=== PATIENT | female | born 1955 | race Caucasian/White ===

== ENCOUNTER → 2018-01-15 07:53 | Outpatient (CLI) | payer OTHER, SELFPAY ==
[2018-01-15 08:52] LABS: Alanine Aminotransferase 25 IU/L (9-52); Albumin 4.5 g/dL (3.5-5.0); Albumin Globulin Ratio 1.5 (1.0-2.8); Alkaline Phosphatase 97 U/L (38-126); Aspartate Aminotransferase 21 IU/L (14-36); BUN Creatinine Ratio 12.9 (6-22); Bilirubin Total 0.4 mg/dL (0.2-1.3); Cholesterol 284 mg/dL (140-199); Estimated Glomerular Filt Rate > 60.0 mL/min (>60); Globulin 3.1 g/dL (1.7-4.1); Glucose 110 mg/dL (80-110); HDL Cholesterol 64 mg/dL (40-60); HEMOLYSIS 21 (0-50); LDL Cholesterol Calculated 168 mg/dL (<100); Potassium 4.1 mmol/L (3.4-5.1); Sodium 139 mmol/L (137-145); Total Protein 7.6 g/dL (6.3-8.2); Triglycerides 259 mg/dL (35-150)
== END ==
PROVIDERS: PCP Family Medicine; Visit Provider Family Medicine
DX: E78.2 Mixed hyperlipidemia (principal); R79.89 Other specified abnormal findings of blood chemistry
CPT/HCPCS: 36415; 80053; 80061

== ENCOUNTER → 2018-06-05 08:21 | Outpatient (CLI) | payer OTHER, SELFPAY ==
[2018-06-05 10:07] LABS: Alanine Aminotransferase 35 IU/L (9-52); Albumin 4.5 g/dL (3.5-5.0); Albumin Globulin Ratio 1.5 (1.0-2.8); Alkaline Phosphatase 84 U/L (38-126); Aspartate Aminotransferase 24 IU/L (14-36); BUN Creatinine Ratio 14.3 (6-22); Bilirubin Total 0.4 mg/dL (0.2-1.3); Blood Urea Nitrogen 10 mg/dL (7-17); Calcium 9.2 mg/dL (8.4-10.2); Carbon Dioxide 27 mmol/L (22-32); Chloride 103 mmol/L (98-107); Cholesterol 215 mg/dL (140-199); Estimated Glomerular Filt Rate > 60.0 mL/min (>60); Globulin 3.1 g/dL (1.7-4.1); Glucose 113 mg/dL (80-110); HDL Cholesterol 61 mg/dL (40-60); HEMOLYSIS 17 (0-50); LDL Cholesterol Calculated 115 mg/dL (<100); Potassium 4.3 mmol/L (3.4-5.1); Sodium 142 mmol/L (137-145); Total Protein 7.6 g/dL (6.3-8.2); Triglycerides 193 mg/dL (35-150)
== END ==
PROVIDERS: PCP Family Medicine; Visit Provider Family Medicine
DX: E78.5 Hyperlipidemia, unspecified (principal)
CPT/HCPCS: 36415; 80053; 80061

== ENCOUNTER 2018-08-10 06:46 | Day surgery (SDC) | payer OTHER, SELFPAY ==
--- NOTE | 2018-08-10 | PATH_ITS ---
[facility] Accession Number: [id number] . 01 Material submitted: . PART A: ANTRAL BIOPSIES PART B: RANDOM COLON BIOPSIES PART C: SIGMOID POLYP AT 25 . 02 Diagnosis: A. Stomach, Antrum, Biopsies: Antral mucosa with no diagnostic abnormality. No evidence of Helicobacter on H/E stain. Negative for intestinal metaplasia. Negative for dysplasia and malignancy. . B. Random Colon, Biopsies: Colonic mucosa with melanosis coli and no other diagnostic abnormality. Negative for active, chronic and microscopic colitis. Negative for dysplasia and malignancy. . C. Sigmoid Colon, Polyp at 25, Biopsy: Tubular adenoma. [facility]/08/11/2018 . 02 Electronically signed: . Jocelyn Gilbert MD, Pathologist NPI- [id number] . 01 Gross description: . Received three formalin-filled containers, each labeled with the patient's name: . A. In a container labeled antral, are three 0.1-0.2 cm portions of tissue, entirely submitted in cassette A. B. In a container labeled right colon, are multiple less than 0.1 cm to 0.2 cm portions of tissue and/or debris, which are filtered, wrapped, and entirely submitted in cassette B. C. In a container labeled sigmoid polyp at 25, are three less than 0.1 cm to 0.3 cm portions of tissue, entirely submitted in cassette C. ([id number]) /FRR . 02 Pathologist provided ICD-10: D12.5 . 02 CPT . 494772, 030522, 275252 Performed at: [address] [facility], [place], [place] [id number] MD Aamir Harding MD Phone: [phone] Performed at: 02 [facility] [place] [address] [place] [id number] MD Jocelyn Gilbert MD Phone: [phone]
[2018-08-10 07:08] VITALS: BP 132/86; PULSE 79; RESP 16; TEMP 36.6; O2SAT 98; BMI 28.3
[2018-08-10] MEDS: SODIUM CHLORIDE 0.9% 1,000 ML 200 ML IV (07:13)
--- NOTE | 2018-08-10 07:31 | PM.PREOP ---
Pre-operative Note Interval Note Pre-op Check: Yes History & Physical Reviewed by Physician and Yes Exam Performed Changes: No H&P completed within 30 days and has changed as indicated here:: Patient seen and examined in the preoperative area. History and physical examination as documented July 30, 2018 is on the chart and remains unchanged. Proceed with EGD and colonoscopy today as planned. ASA Class (for procedural sedation): II
[2018-08-10] MEDS: TETRACAINE/BENZOCAINE/BUTAMBEN (CETACAINE) BOTTLE 1 SPRAY TOP (07:50)
[2018-08-10] MEDS: LIDOCAINE 4% SOLN 50 ML 20 ML TOP (07:51)
[2018-08-10] MEDS: MIDAZOLAM 5 MG/5 ML VIAL IV (07:58)
[2018-08-10] MEDS: fentaNYL 250 MCG/5 ML INJ IV (07:59)
--- NOTE | 2018-08-10 08:07 | PM.OP.ENDO ---
Operative Date/Time/Diagnoses Date of procedure: 08/10/18 Time of procedure: 08:07 Pre-op diagnosis: Abdominal pain and change in bowel habits Post-op diagnosis: other (Normal upper gastrointestinal tract and sigmoid colon polyp with melanosis coli) Procedure & Clinicians Study performed: 1. Sedation per surgeon 2. Esophagogastroduodenoscopy with cold forceps biopsies 3. Colonoscopy with cold forceps polypectomy and biopsies Same procedure as scheduled: Yes Indications: 63-year-old female who presented initially with epigastric abdominal pain and was found to have cholelithiasis. She completed laparoscopic cholecystectomy without complications but her symptoms persisted unchanged. She is also having some change in bowel habits. She was therefore recommended undergo EGD and colonoscopy. Surgeon: Cal Whittington Procedure Notes SCOAP/Timeout: Yes Procedure in detail: After obtaining informed consent, the patient was brought to the GI suite and placed in the left lateral decubitus position on the examination table. After placement of appropriate monitors, the patient was given incremental doses of Versed and Fentanyl until an appropriate level of sedation was achieved. A time out was held per SCOAP protocol. A bite block was gently placed between the patient's teeth. The endoscope was lubricated and then passed into the patient's posterior oropharynx. The esophagus was cannulated under direct vision and the scope was passed to the second portion of the duodenum without difficulty. The scope was then withdrawn with careful examination of all areas of the upper GI tract and mucosa. In the stomach, the instrument was retroflexed and the GE junction examined. Z-line was at 35 cm from the incisors. Larynx was grossly normal. The scope was straightened and the procedure continued with examination of the remainder of the upper GI tract. Findings are noted above. Air was aspirated from the stomach and the endoscope gently removed from the esophagus. Bite block was removed and patient turned 180? for colonoscopy. A digital rectal examination was performed and did not reveal any masses or obstructing lesions. The colonoscope was gently passed into the patient's anus and the entire colon navigated to the level of the cecum with minimal difficulty. Terminal ileum was intubated and noted to be grossly normal. Once in the cecum, the scope was withdrawn being sure to go before and beyond all mucosal folds and prominences and get an excellent examination. The findings are noted above. At the level of the rectal vault, the scope was retroflexed and the internal anal canal was examined. The scope was straightened and air aspirated from the colon. The instrument was removed from the patient's body and the procedure was concluded. The patient was allowed to awaken from sedation without difficulty and taken to the post-anesthesia care unit in good condition. Scope withdrawal time: 9:34 min Sedation minutes: 26 Findings: polyp and other findings (Melanosis coli) Specimen(s): other (1. Antral biopsies 2. Random colon biopsies 3. Sigmoid colon polyp at 25 cm) Complications: none Recommendations: Colonscopy in 5 years, Reflux diet and No ASA/NSAIDS Plan for aftercare: 1. Discharge home Follow up: weeks (Two weeks with Dr. Whittington) Disposition: PACU
[2018-08-10 08:10] VITALS: BP 110/67; PULSE 82; RESP 19; O2SAT 97
[2018-08-10 08:15] VITALS: BP 107/60; PULSE 72; RESP 8; O2SAT 97
[2018-08-10 08:18] VITALS: TEMP 37
[2018-08-10 08:21] VITALS: BP 115/69; PULSE 84; RESP 13; O2SAT 96
[2018-08-10 08:41] VITALS: BP 113/73; PULSE 77; RESP 15; TEMP 36.1; O2SAT 98
== END 2018-08-10 08:50 | disposition home or self-care (01) ==
PROVIDERS: Family Provider Family Medicine; PCP Family Medicine; Visit Provider Surgery
PROC: 0DJD8ZZ Inspection of Lower Intestinal Tract, Via Natural or Artificial Opening Endoscopic (ICD-10-PCS; CPT 45378; 2018-08-10 07:45)
PROC: 0DJ08ZZ Inspection of Upper Intestinal Tract, Via Natural or Artificial Opening Endoscopic (ICD-10-PCS; CPT 43235; 2018-08-10 07:45)
DX: D12.5 Benign neoplasm of sigmoid colon (principal); R10.13 Epigastric pain; Z87.891 Personal history of nicotine dependence; F41.9 Anxiety disorder, unspecified; G89.29 Other chronic pain; F43.12 Post-traumatic stress disorder, chronic; K63.89 Other specified diseases of intestine
CPT/HCPCS: 45380; 43239; 99152; 99153; J2250; J3010

== ENCOUNTER → 2019-03-31 08:39 | Outpatient (CLI) | payer OTHER, SELFPAY ==
[2019-02-12 09:11] LABS: Appearance Urine UA CLEAR; Bilirubin Urine UA NEGATIVE (NEGATIVE); Color Urine UA YELLOW; Glucose Urine UA NEGATIVE (Negative); Ketones Urine UA NEGATIVE (NEGATIVE); Leukocyte Esterase Urine UA NEGATIVE (NEGATIVE); Nitrite Urine UA NEGATIVE (Negative); Occult Blood Urine UA NEGATIVE (Negative); Protein Urine UA NEGATIVE (Negative); Specific Gravity Urine UA <=1.005 (1.000-1.035); Urobilinogen Urine UA 0.2 E.U./dL (0.2)
[2019-02-12 09:19] LABS: Add Manual Diff / Slide Review NO; Basophils Absolute Auto 100 /uL (0-100); Basophils Percent Auto 0.7 % (0-2); Eosinophils Absolute Auto 100 /uL (0-450); Hemoglobin 12.5 g/dL (12.0-16.0); Lymphocytes Absolute Auto 1700 /uL (1100-4500); Lymphocytes Percent Auto 24.7 % (25-40); Mean Corpuscular Hemoglobin 27.4 PG (26-34); Monocytes Absolute Auto 500 /uL (0-900); Monocytes Percent Auto 6.9 % (3-14); Neutrophils Absolute Auto 4600 /uL (1500-7000); Neutrophils Percent Auto 65.7 % (50-75); Platelet Count 250 X10^3/uL (150-400); Red Blood Cell Count 4.57 X10^6/uL (4.0-5.2); Red Cell Distribution Width 14.9 % (11.6-14.8); White Blood Cell Count 7.1 X10^3/uL (4.5-11.0)
[2019-02-12 09:20] LABS: Alanine Aminotransferase 33 IU/L (9-52); Albumin 4.6 g/dL (3.5-5.0); Albumin Globulin Ratio 1.4 (1.0-2.8); Alkaline Phosphatase 94 U/L (38-126); Aspartate Aminotransferase 25 IU/L (14-36); BUN Creatinine Ratio 17.1 (6-22); Bilirubin Total 0.5 mg/dL (0.2-1.3); Blood Urea Nitrogen 12 mg/dL (7-17); Calcium 9.3 mg/dL (8.4-10.2); Carbon Dioxide 29 mmol/L (22-32); Chloride 103 mmol/L (98-107); Estimated Glomerular Filt Rate > 60.0 mL/min (>60); Globulin 3.2 g/dL (1.7-4.1); Glucose 117 mg/dL (80-110); HDL Cholesterol 64 mg/dL (40-60); HEMOLYSIS < 15 (0-50); Potassium 4.3 mmol/L (3.4-5.1); Sodium 140 mmol/L (137-145); Total Protein 7.8 g/dL (6.3-8.2); Triglycerides 275 mg/dL (35-150)
[2019-02-12 09:32] LABS: Cholesterol 354 mg/dL (140-199); LDL Cholesterol Calculated 235 mg/dL (<100)
[2019-02-12 10:11] LABS: Thyroid Stimulating Hormone 3.21 uIU/mL (0.47-4.68)
--- NOTE | 2019-03-31 15:14 | DIET.PN ---
Hyperglycemia/Hyperlipidemia Nutrition Initial Assessment:? ASSESS:??63 yof referred for hyperglycemia and hyperlipidemia. Pt reports a strong family hx of diabetes. She has a hx of hypoglycemia as noted by sign/symptoms as well as chronic anxiety. She is currently living with a family who provides all evening meals. Admits she does not have much control over dinner planning based on living situation. She has a hx of sugar addiction, therefore has tried to avoid it completely over the last month but tends to splurge with dining out on the weekends. Discontinued exercise due to work schedule and fatigue. She is transitioning to 2d/wk and is looking forward to having more time available for exercise and meal planning. ? LABS: Per pt report:? Chol: 354 T LDL: 235 HDL: 64 Gluc: 117 MEDS:?Simvastatin Supplements: Fiber, D/c omegas/oils as she thought she was getting too much? DIET: Per 24-hour recall:? B: HB egg, whole banana, activia drink or 1/2 granola, milk, banana Sn: protein powder w/ overnight soaked kel in 20 oz juice L: Garden Salad w/ tuna or salmon packet, avocado, amazing seed bread (thin slice) Sn: Apple/[place] D: Heavy on starch and pro, minimal vegetables ? Weight: 144# Height: 60 ? Exercise:? minimal (enjoy walking, yoga. Has bands, balls, weights) NUTRITION DX 1. Altered Nutrition related labs related to impaired glucose metabolism, lack of previous exposure to accurate nutrition information as evidenced by pt report, dx of hyperglycemia/hyperlipidemia, previous diet high in refined carbohydrates.? INTERVENTION(s): 1. Discussed pathophysiology of diabetes. Reviewed laboratory values and recommended values. 2. Discussed impact of nutrition/diet on blood sugar and lipid control.? 3. Discussed the effect of carbohydrates/protein/fat on blood sugar control.? Stressed importance of consistent carbohydrate intake at each meal and provided instructions for recommended servings/portions of carbohydrates/protein per meal. Provided pt with educational material. 4. Reviewed carbohydrate counting and measuring carbohydrate content via serving sizes and reading nutrition labels.? Provided handouts. 5. Discussed the difference between simple versus complex carbohydrates and the effect of fiber on blood sugar control.? Discussed various methods to increase fiber content in diet. 6. Stressed importance of meal timing and not going >4-5 hours between meals. Encouraged adding protein to each meal to support glucose control. Provided list of protein foods. Discussed best protein options for heart health and to alleviate hunger. Patient agreeable. 7. Discussed ways to increase vegetable intake at meals particularly dinner. Pt agreeable to keeping frozen vegetables and salad mixes to incorporate into evening meal. ?? 8. Recommended pt replace 20 apple juice w/ yogurt or water or overnight kel seeds. 9. Discussed healthy weight loss through diet and exercise to increase lean muscle mass.? Pt agreeable to walking daily and including resistance training 2x/wk. MONITOR/EVALUATE: Anticipate good compliance.? Pt will check with insurance to determine authorized visit amount.
== END ==
PROVIDERS: PCP Family Medicine; Visit Provider Family Medicine
DX: E11.9 Type 2 diabetes mellitus without complications (principal); E78.5 Hyperlipidemia, unspecified; Z13.220 Encounter for screening for lipoid disorders; Z13.29 Encounter for screening for other suspected endocrine disorder
CPT/HCPCS: 36415; 80053; 80061; 81003; 84443; 85025

== ENCOUNTER → 2019-03-31 13:45 | Outpatient (CLI) | payer OTHER, SELFPAY ==
--- NOTE | 2019-03-31 15:14 | DIET.PN ---
Dietary Progress Note Hyperglycemia/Hyperlipidemia Nutrition Initial Assessment:? ASSESS:??63 yof referred for hyperglycemia and hyperlipidemia. Pt reports a strong family hx of diabetes. She has a hx of hypoglycemia as noted by sign/symptoms as well as chronic anxiety. She is currently living with a family who provides all evening meals. Admits she does not have much control over dinner planning based on living situation. She has a hx of sugar addiction, therefore has tried to avoid it completely over the last month but tends to splurge with dining out on the weekends. Discontinued exercise due to work schedule and fatigue. She is transitioning to 2d/wk and is looking forward to having more time available for exercise and meal planning. ? LABS: Per pt report:? Chol: 354 T LDL: 235 HDL: 64 Gluc: 117 MEDS:?Simvastatin Supplements: Fiber, D/c omegas/oils as she thought she was getting too much? DIET: Per 24-hour recall:? B: HB egg, whole banana, activia drink or 1/2 granola, milk, banana Sn: protein powder w/ overnight soaked kel in 20 oz juice L: Garden Salad w/ tuna or salmon packet, avocado, amazing seed bread (thin slice) Sn: Apple/[place] D: Heavy on starch and pro, minimal vegetables ? Weight: 144# Height: 60 ? Exercise:? minimal (enjoy walking, yoga. Has bands, balls, weights) NUTRITION DX 1. Altered Nutrition related labs related to impaired glucose metabolism, lack of previous exposure to accurate nutrition information as evidenced by pt report, dx of hyperglycemia/hyperlipidemia, previous diet high in refined carbohydrates.? INTERVENTION(s): 1. Discussed pathophysiology of diabetes. Reviewed laboratory values and recommended values. 2. Discussed impact of nutrition/diet on blood sugar and lipid control.? 3. Discussed the effect of carbohydrates/protein/fat on blood sugar control.? Stressed importance of consistent carbohydrate intake at each meal and provided instructions for recommended servings/portions of carbohydrates/protein per meal. Provided pt with educational material. 4. Reviewed carbohydrate counting and measuring carbohydrate content via serving sizes and reading nutrition labels.? Provided handouts. 5. Discussed the difference between simple versus complex carbohydrates and the effect of fiber on blood sugar control.? Discussed various methods to increase fiber content in diet. 6. Stressed importance of meal timing and not going >4-5 hours between meals. Encouraged adding protein to each meal to support glucose control. Provided list of protein foods. Discussed best protein options for heart health and to alleviate hunger. Patient agreeable. 7. Discussed ways to increase vegetable intake at meals particularly dinner. Pt agreeable to keeping frozen vegetables and salad mixes to incorporate into evening meal. ?? 8. Recommended pt replace 20 apple juice w/ yogurt or water or overnight kel seeds. 9. Discussed healthy weight loss through diet and exercise to increase lean muscle mass.? Pt agreeable to walking daily and including resistance training 2x/wk. MONITOR/EVALUATE: Anticipate good compliance.? Pt will check with insurance to determine authorized visit amount.
== END ==
PROVIDERS: PCP Family Medicine; Visit Provider Family Medicine
DX: R73.9 Hyperglycemia, unspecified (principal); E78.5 Hyperlipidemia, unspecified
CPT/HCPCS: 97802

== ENCOUNTER → 2019-07-02 07:37 | Outpatient (CLI) | payer OTHER, MEDICAID, SELFPAY ==
[2019-07-02 08:18] LABS: Hemoglobin A1C% w Est Avg Glu 5.8 % (4.0-6.0)
[2019-07-02 08:34] LABS: BUN Creatinine Ratio 18.6 (6-22); Blood Urea Nitrogen 13 mg/dL (7-17); Carbon Dioxide 26 mmol/L (22-32); Chloride 102 mmol/L (98-107); Potassium 4.3 mmol/L (3.4-5.1); Sodium 137 mmol/L (137-145)
[2019-07-02 08:35] LABS: Alanine Aminotransferase 27 IU/L (<35); Albumin 4.5 g/dL (3.5-5.0); Albumin Globulin Ratio 1.7 (1.0-2.8); Alkaline Phosphatase 100 U/L (38-126); Aspartate Aminotransferase 26 IU/L (14-36); Bilirubin Total 0.3 mg/dL (0.2-1.3); Calcium 9.2 mg/dL (8.4-10.2); Cholesterol 246 mg/dL (140-199); Estimated Glomerular Filt Rate > 60.0 mL/min (>60); Globulin 2.6 g/dL (1.7-4.1); Glucose 104 mg/dL (80-110); HDL Cholesterol 66 mg/dL (40-60); HEMOLYSIS < 15 (0-50); LDL Cholesterol Calculated 129 mg/dL (<100); Total Protein 7.1 g/dL (6.3-8.2); Triglycerides 257 mg/dL (35-150)
== END ==
PROVIDERS: PCP Family Medicine; Visit Provider Family Medicine
DX: E78.5 Hyperlipidemia, unspecified (principal); R73.9 Hyperglycemia, unspecified
CPT/HCPCS: 36415; 80053; 80061; 83036

== ENCOUNTER → 2020-11-30 08:06 | Outpatient (CLI) | payer OTHER, MEDICAID, SELFPAY ==
[2020-11-30] MEDS: COVID-19 VACC, Ad26(JANSSEN)/PF 0.5 ML IM (08:15)
== END ==
PROVIDERS: PCP Family Medicine; Visit Provider Internal Medicine
DX: Z23 Encounter for immunization (principal)
CPT/HCPCS: 0031A; 91303

== ENCOUNTER → 2020-12-28 08:23 | Outpatient (CLI) | payer OTHER, MEDICAID, SELFPAY ==
[2020-12-28 09:19] LABS: Add Manual Diff / Slide Review NO; Basophils Absolute Auto 100 /uL (0-100); Eosinophils Absolute Auto 100 /uL (0-450); Eosinophils Percent Auto 1.6 % (2-4); Hematocrit 37.2 % (36-46); Hemoglobin 12.5 g/dL (12.0-16.0); Lymphocytes Absolute Auto 1900 /uL (1100-4500); Lymphocytes Percent Auto 26.4 % (25-40); Mean Corpuscular HGB Conc 33.5 % (30-36); Mean Corpuscular Volume 80.5 fL (80-100); Monocytes Absolute Auto 500 /uL (0-900); Neutrophils Absolute Auto 4500 /uL (1500-7000); Platelet Count 235 X10^3/uL (150-400); Red Blood Cell Count 4.62 X10^6/uL (4.0-5.2); Red Cell Distribution Width 14.8 % (11.6-14.8); White Blood Cell Count 7.1 X10^3/uL (4.5-11.0)
[2020-12-28 09:45] LABS: Alanine Aminotransferase 27 IU/L (<35); Albumin 4.3 g/dL (3.5-5.0); Albumin Globulin Ratio 1.4 (1.0-2.8); Alkaline Phosphatase 88 U/L (38-126); Aspartate Aminotransferase 24 IU/L (14-36); BUN Creatinine Ratio 16.9 (6-22); Bilirubin Total 0.3 mg/dL (0.2-1.3); Blood Urea Nitrogen 11 mg/dL (7-17); Calcium 9.1 mg/dL (8.4-10.2); Carbon Dioxide 24 mmol/L (22-32); Chloride 104 mmol/L (98-107); Cholesterol 311 mg/dL (140-199); Estimated Glomerular Filt Rate > 60.0 mL/min (>60); Globulin 3.1 g/dL (1.7-4.1); Glucose 121 mg/dL (80-110); HDL Cholesterol 55 mg/dL (40-60); HEMOLYSIS 16 (0-50); LDL Cholesterol Calculated 188 mg/dL (<100); Potassium 4.2 mmol/L (3.4-5.1); Sodium 137 mmol/L (137-145); Total Protein 7.4 g/dL (6.3-8.2); Triglycerides 341 mg/dL (35-150)
[2020-12-28 10:15] LABS: TSH w/ Reflex to FT4 3.16 uIU/mL (0.47-4.68)
== END ==
PROVIDERS: PCP Family Medicine; Referring Provider Family Medicine; Visit Provider Family Medicine
DX: E16.2 Hypoglycemia, unspecified (principal); E78.5 Hyperlipidemia, unspecified; Z13.29 Encounter for screening for other suspected endocrine disorder
CPT/HCPCS: 36415; 80053; 80061; 84443; 85025

== ENCOUNTER → 2021-02-13 11:56 | Outpatient (CLI) | payer OTHER, MEDICAID, SELFPAY ==
--- NOTE | 2021-02-13 11:57 | DI.RAD.S_ITS ---
PROCEDURE: XR SHOULDER LT MIN 2V INDICATIONS: left shoulder pain TECHNIQUE: 3 views of the shoulder were acquired. COMPARISON: None. FINDINGS: Bones: No fractures or dislocations. No suspicious bony lesions. Mild acromioclavicular and glenohumeral joint degeneration. Visualized ribs appear intact. Soft tissues: Calcific density over the humeral head suggesting calcific tendinitis. IMPRESSION: 1. Mild degenerative joint disease. 2. Suspect rotator cuff calcific tendinitis. Dictated by: Chris Mchugh M.D. on 02/13/2021 at 17:47 Approved by: Chris Mchugh M.D. on 02/13/2021 at 17:48
== END ==
PROVIDERS: PCP Family Medicine; Referring Provider Family Medicine; Visit Provider Family Medicine
DX: M25.512 Pain in left shoulder (principal); M19.012 Primary osteoarthritis, left shoulder
CPT/HCPCS: 73030

== ENCOUNTER → 2021-05-09 08:13 | Outpatient (CLI) | payer OTHER, MEDICAID, SELFPAY ==
[2021-05-09 09:53] LABS: Alanine Aminotransferase 27 IU/L (<35); Albumin 4.7 g/dL (3.5-5.0); Albumin Globulin Ratio 1.5 (1.0-2.8); Alkaline Phosphatase 92 U/L (38-126); Aspartate Aminotransferase 43 IU/L (14-36); BUN Creatinine Ratio 13.3 (6-22); Blood Urea Nitrogen 8 mg/dL (7-17); Calcium 9.1 mg/dL (8.4-10.2); Carbon Dioxide 26 mmol/L (22-32); Chloride 103 mmol/L (98-107); Cholesterol 294 mg/dL (140-199); Estimated Glomerular Filt Rate > 60.0 mL/min (>60); Globulin 3.1 g/dL (1.7-4.1); Glucose 117 mg/dL (80-110); HDL Cholesterol 64 mg/dL (40-60); LDL Cholesterol Calculated 150 mg/dL (<100); Sodium 137 mmol/L (137-145); Total Protein 7.8 g/dL (6.3-8.2); Triglycerides 398 mg/dL (35-150)
[2021-05-09 09:54] LABS: HEMOLYSIS 237 (0-50)
[2021-05-09 09:58] LABS: Hemoglobin A1C% w Est Avg Glu 6.1 % (4.0-6.0)
== END ==
PROVIDERS: PCP Family Medicine; Referring Provider Family Medicine; Visit Provider Family Medicine
DX: R73.03 Prediabetes (principal); E78.5 Hyperlipidemia, unspecified; M54.5 Low back pain; Z00.00 Encounter for general adult medical examination without abnormal findings; R73.9 Hyperglycemia, unspecified
CPT/HCPCS: 36415; 80053; 80061; 83036